=== PATIENT | female | born 1990 | race Caucasian/White ===

== ENCOUNTER → 2017-06-06 | Outpatient (CLI) | payer OTHER | LOC: BHSO 10:49 | DX: F90.0 Attention-deficit hyperactivity disorder, predominantly inattentive type (principal) | CPT/HCPCS: 90791-AI ==

== ENCOUNTER → 2017-06-27 | Outpatient (CLI) | payer OTHER | LOC: BHSO 08:10 | DX: F90.0 Attention-deficit hyperactivity disorder, predominantly inattentive type (principal) ==

== ENCOUNTER → 2017-07-29 | Outpatient (CLI) | payer OTHER | LOC: BHSO 13:37 | DX: F90.0 Attention-deficit hyperactivity disorder, predominantly inattentive type (principal) ==

== ENCOUNTER → 2017-09-08 | Outpatient (CLI) | payer OTHER | LOC: BHSO 15:38 | DX: F90.0 Attention-deficit hyperactivity disorder, predominantly inattentive type (principal) | CPT/HCPCS: G0463 ==

== ENCOUNTER → 2017-12-12 | Outpatient (CLI) | payer OTHER | LOC: BHSO 13:10 | DX: F90.0 Attention-deficit hyperactivity disorder, predominantly inattentive type (principal) | CPT/HCPCS: G0463 ==

== ENCOUNTER → 2018-08-24 | Outpatient (CLI) | payer OTHER | LOC: BHSO 13:09 | DX: F90.0 Attention-deficit hyperactivity disorder, predominantly inattentive type (principal) | CPT/HCPCS: G0463 ==